=== PATIENT | female | born 1995 | race Two or more races ===

== ENCOUNTER 2016-09-04 15:31 | Emergency (ER) | payer OTHER ==
[~2016-09-04] VITALS: Ht 154.9 cm; Wt 59.0 kg
[2016-09-04] MEDS ORDERED: prenatal vitamin PO (15:52)
[2016-09-04 18:51] LABS: BASO % 0.4 % (0.0-1.0); EOS # 0.5 K/mm3 (0.0-0.50); EOS % 7.1 % (0.0-3.0); LARGE UNSTAINED CELL # 0.2 K/mm3 (0.0-0.4); LARGE UNSTAINED CELL % 3.5 % (0.0-4.0); LYMPH % 31.3 % (24.0-44.0); MEAN CORPUSCULAR HEMOGLOBIN 25.2 pg (27.0-33.0); MEAN CORPUSCULAR HGB CONC 31.2 g/dl (32.0-36.5); MEAN CORPUSCULAR VOLUME 80.8 fl (80.0-96.0); MONO # 0.6 K/mm3 (0.0-0.8); MONO % 9.1 % (0.0-5.0); NEUTROPHILS # 3.2 K/mm3 (1.8-7.7); NEUTROPHILS % 48.5 % (36.0-66.0); PLATELET COUNT, AUTOMATED 258 k/mm3 (150-450); RED CELL DISTRIBUTION WIDTH 16.7 % (11.5-14.5); WHITE BLOOD COUNT 6.5 K/mm3 (4.0-10.0)
[2016-09-04 19:16] LABS: ANION GAP 7 MEQ/L (8-16); BLOOD UREA NITROGEN 8 MG/DL (7-18); CALCIUM LEVEL 8.7 MG/DL (8.5-10.1); CARBON DIOXIDE LEVEL 24 MEQ/L (21-32); CHLORIDE LEVEL 106 MEQ/L (98-107); CREATININE FOR GFR 0.45 MG/DL (0.55-1.02); GLUCOSE, FASTING 74 MG/DL (70-105); HCG, SERUM QUANTITATIVE 58465 MIU/ML; POTASSIUM SERUM 3.8 MEQ/L (3.5-5.1); SODIUM LEVEL 137 MEQ/L (136-145)
--- NOTE | 2016-09-04 19:34 | REP ---
FIRST TRIMESTER ULTRASOUND: REASON: Vaginal bleeding. COMPARISON: None. Transvesical imaging was obtained. Multiple sonographic images of the uterus show an anechoic structure within the endometrial cavity with increased echo surrounding it consistent with a decidual reaction. Within the gestational sac there is a small amount of echogenic material consistent with the pole. The main crown-rump length measurement of which is consistent with 6 week 5 day gestational age. Based on that the estimated date of delivery is 04/25/2017. Doppler interrogation of the pole shows a heart rate of 132 beats per minute. Evaluation of the material adnexal spaces show no abnormalities. There was no evidence of a chorionic or subchorionic abnormality. IMPRESSION: Early OB ultrasound as described above. Signed by Clint Peres DO 09/04/2016 07:49 P
[2016-09-04 20:02] VITALS: BP 122/69
== END 2016-09-04 20:23 | disposition home or self-care (01) ==
LOC: M ED 19:09
DX: O20.8 Other hemorrhage in early pregnancy (principal); Z3A.01 Less than 8 weeks gestation of pregnancy

== ENCOUNTER 2017-04-11 14:00 | Outpatient (CLI) | payer OTHER ==
[~2017-04-11] VITALS: Ht 157.5 cm; Wt 73.0 kg
[~2017-04-11 14:00] MED LIST: prenatal vitamin PO
== END 2017-04-11 16:42 | disposition home or self-care (01) ==
LOC: M LDO 14:00
PROVIDERS: ATTEND Obstetrics & Gynecology
DX: O36.8130 Decreased fetal movements, third trimester, not applicable or unspecified (principal); Z3A.37 37 weeks gestation of pregnancy; N89.8 Other specified noninflammatory disorders of vagina; O26.893 Other specified pregnancy related conditions, third trimester

== ENCOUNTER 2017-04-23 19:07 | Outpatient (CLI) | payer OTHER | END 2017-04-23 19:55 | disposition home or self-care (01) | LOC: M LDO 19:07 | PROVIDERS: ATTEND Obstetrics & Gynecology | DX: O47.1 False labor at or after 37 completed weeks of gestation (principal); Z3A.39 39 weeks gestation of pregnancy ==

== ENCOUNTER 2017-04-23 21:35 | Inpatient (IN) | payer OTHER ==
[~2017-04-23] VITALS: Ht 157.5 cm; Wt 73.3 kg
[2017-04-23 21:50] VITALS: BP 133/83
[2017-04-23 22:49] VITALS: BP 127/70
[2017-04-24] VITALS (26 sets, daily range): BP systolic 96–169; BP diastolic 55–86
[2017-04-24] MEDS ORDERED: LACTATED RINGER'S 1000 ML IV STA (04:19)
[2017-04-24 05:02] LABS: MEAN CORPUSCULAR HEMOGLOBIN 24.3 pg (27.0-33.0); MEAN CORPUSCULAR HGB CONC 32.1 g/dl (32.0-36.5); MEAN CORPUSCULAR VOLUME 75.7 fl (80.0-96.0); PLATELET COUNT, AUTOMATED 214 10^3/uL (150-450); RED CELL DISTRIBUTION WIDTH 19.5 % (11.5-14.5); WHITE BLOOD COUNT 13.3 10^3/uL (4.0-10.0)
[2017-04-24] MEDS ORDERED: FENTANYL 2MCG/ML ROPIVACAINE 0.2% IN 0.9% NACL 200ML IVBAG As Ordered ONE (05:04)
[2017-04-24] MEDS ORDERED: diphenhydrAMINE INJ 50MG/ML VIAL (J1200) IV PRN (07:00)
[2017-04-24] MEDS ORDERED: NALOXONE INJ 0.4 MG/1 ML VIAL (J2310) IV PRN (07:00)
[2017-04-24] MEDS ORDERED: EPIDURAL/PCA KEYS XX PRN (07:00)
[2017-04-24] MEDS ORDERED: REFRIGERATOR IV KEYS XX PRN (07:00)
[2017-04-24] MEDS ORDERED: ONDANSETRON 4MG/2ML VIAL (J2405) IV PRN ×2 (07:00→09:45)
[2017-04-24] MEDS ORDERED: LACTATED RINGER'S 1000 ML IV PRN (07:00)
[2017-04-24] MEDS ORDERED: FENTANYL/ROPIVACAINE/NACL BAG 200 ML EPIDURAL SCH (07:00)
[2017-04-24] MEDS ORDERED: EPIDURAL COMMENT XX SCH (07:00)
[2017-04-24] MEDS ORDERED: ePHEDrine SULFATE 25 MG/5 ML(5MG/ML) SYRINGE IV PRN (07:00)
[2017-04-24] MEDS ORDERED: OXYTOCIN 30 UNITS IN 0.9% NaCl 500ML IV BAG (J2590) As Ordered ONE (07:43)
[2017-04-24] MEDS: PRENATAL VITAMINS CHEWABLE TABLET PO SCH (09:00)
[2017-04-24] MEDS ORDERED: OXYTOCIN DRIP 30 UNITS in APPROPRIATE DILUENT 1 EA IV SCH (09:41)
[2017-04-24] MEDS ORDERED: ACETAMINOPHEN 500 MG TAB PO PRN (09:45)
[2017-04-24] MEDS ORDERED: ANUSOL HC CREAM 30GM TOP PRN (09:45)
[2017-04-24] MEDS ORDERED: DIBUCAINE 1% OINTMENT 30GM TOP PRN (09:45)
[2017-04-24] MEDS ORDERED: DOCUSATE SODIUM 100 MG CAP PO PRN (09:45)
[2017-04-24] MEDS: IBUPROFEN 600 MG TAB PO PRN (15:44)
[2017-04-25 06:00] VITALS: BP 136/60
--- NOTE | 2017-04-25 07:20 | IPNPDOC ---
Progress Note Date of Service The patient was seen on 04/25/17 at 07:18. Progress Note PPD#1 s/p S: Pt doing well. Pain well controlled, lochia minimal, voiding spontaneously without problem, tolerating a regular diet, ambulating without difficulty. No f /c/n/v/OLGUIN. Plans on breast feeding. O: Normotensive, nml HR, afebrile General: WDWN, resting comfortably in bed Abd: soft, appropriately tender, and FF at U-2/fundus nontender Ext: no c/c/e A/P: Shy is a 22yo [id number] s/p after presenting in labor at 39w4d, doing well PPD#1. Hemodynamically stable, afebrile, good pain control. -routine care -tylenol/motrin for pain -continue to monitor closely -anticipate discharge tomorrow Dr. Tomkea Alaniz ([facility]), VS, I&O, 24H, Fishbone Vital Signs/I&O Vital Signs Date Time Temp Pulse Resp B/P (MAP) Pulse Ox O2 Delivery O2 Flow Rate FiO2 04/25/17 06:00 98.4 112 18 136/60 (85) 04/24/17 07:28 Room Air TOMEKA ALANIZ MD Apr 25, 2017 07:20
[2017-04-25 08:30] VITALS: BP 117/73
[2017-04-25] MEDS ORDERED: INFLUENZA QUADRIVALENT PF VACCINE 0.5ML SYRINGE (90686) IM ONE (09:00)
[2017-04-25] MEDS: PRENATAL VITAMINS CHEWABLE TABLET PO SCH (09:58)
[2017-04-25] MEDS: IBUPROFEN 600 MG TAB PO PRN (09:59)
--- NOTE | 2017-04-25 15:37 | IPN ---
DATE: 04/25/2017 This patient requested circumcision of her male . After discussing risks and benefits circumcision, the medical and nonmedical indications, the penile block aftercare and the complications, answered all questions, patient signed and witnessed the consent form. We await clearance by the dust box worker.
[2017-04-25 18:16] VITALS: BP 112/65
[2017-04-26 01:50] VITALS: BP 134/76
[2017-04-26] MEDS ORDERED: ACETAMINOPHEN 500 MG TAB PO STA (02:01)
[2017-04-26 02:27] LABS: BASO % 0.2 % (0.0-1.0); EOS # 0.2 10^3/uL (0.0-0.50); EOS % 1.6 % (0.0-3.0); IMMATURE GRANULOCYTE % 0.5 % (0-0); LYMPH % 11.2 % (24.0-44.0); MEAN CORPUSCULAR HEMOGLOBIN 24.2 pg (27.0-33.0); MEAN CORPUSCULAR HGB CONC 31.3 g/dl (32.0-36.5); MEAN CORPUSCULAR VOLUME 77.1 fl (80.0-96.0); MONO # 0.8 10^3/uL (0.0-0.8); MONO % 8.9 % (0.0-5.0); NEUTROPHILS # 7.1 10^3/uL (1.8-7.7); NEUTROPHILS % 77.6 % (36.0-66.0); PLATELET COUNT, AUTOMATED 180 10^3/uL (150-450); RED CELL DISTRIBUTION WIDTH 19.6 % (11.5-14.5); WHITE BLOOD COUNT 9.2 10^3/uL (4.0-10.0)
[2017-04-26 03:05] VITALS: BP 107/57
[2017-04-26 05:54] VITALS: BP 116/72
[2017-04-26] MEDS ORDERED: TYLE325T5 PO (07:56)
[2017-04-26] MEDS ORDERED: DIBU10OI TOP (07:56)
[2017-04-26] MEDS ORDERED: COLA100C5 PO (07:56)
[2017-04-26] MEDS ORDERED: MOTR200T44 PO (07:56)
[2017-04-26] MEDS ORDERED: PRENTAB55 PO (07:56)
[2017-04-26] MEDS ORDERED: ANUS2.5C2 TOP (07:56)
[2017-04-26] MEDS: PRENATAL VITAMINS CHEWABLE TABLET PO SCH (08:45)
--- NOTE | 2017-04-26 10:14 | DSES ---
DATE OF ADMISSION: 04/24/2017 DATE OF DISCHARGE: DISCHARGE NOTE: This lady is a 22-year-old, 1, now para 1, was admitted with contractions, had a spontaneous vaginal delivery of male , 7 pounds 8 ounces (3410 grams) of 8 and 9 at one and five minutes respectively. Her admitting hemoglobin was 11.0, hematocrit 34.3 and platelets were 214. Her vital signs this morning, her blood pressure 116/72, respirations 18, pulse 109, temperature is 98.1. She had an elevated temperature at 01:50 a.m. after having been given her flu shot despite the policy and written orders of giving a flu shot at discharge. At that time, she had a blood pressure 134/76, respirations 20, pulse 129. She had a septic workup, which was going to be negative and she felt much better after having the Tylenol and temperature coming down. She had bilateral labial lacerations, one of which was repaired on the right side, the left side did not require repair. On discharge, we discussed phlebitis, cystitis, mastitis, endometritis and cellulitis, diet, exercise, pain management, perineal, breast and wound care. She was given her meds at discharge and the rest of the examination is unremarkable. Her admitting hemoglobin was 11.0, hematocrit 34.3, platelets 214. Discharge hemoglobin 9.3, hematocrit 29.7, platelets were 180. She is normocephalic, atraumatic. Neck full range of motion. Pupils equal and reactive to light. Chest is clear bilaterally to bases. No wheezes or rhonchi. Neck is normal. Thyroid midline. Mucosa membranes are clear and dry, and uvula is midline with no evidence of exudate. Distal pulses are symmetric. No evidence of deep venous thrombosis (DVT), pulmonary embolism (PE) or superficial phlebitis. Uterus is 2 below. Lochia is moderate. Nontender uterus. Nonodorous lochia. No rashes, lesions or pruritus. No arthralgia or myalgia. No complaints of cough, wheezes, shortness of breath or dyspnea on exertion. No chest pain. No bleeding. Neuro complete. No incontinency, urgency or frequency. No nausea, vomiting, diarrhea or constipation. No diabetic issues or CONSUMER RELATIONS SPECIALIST issues. Past medical and surgical, family history noncontributory. She does not smoke, drink, abuse drugs. She is . There is no domestic violence. In summary, we have a term gestation, delivered a live male , discharged to followup in the office in 6 weeks' time.
== END 2017-04-26 12:37 | disposition home or self-care (01) | DRG 775 ==
LOC: M LDO 21:35 → M LDI 04-24 04:23 → M OBS 04-24 12:16
PROVIDERS: ADMIT Obstetrics & Gynecology; ATTEND Obstetrics & Gynecology
PROC: 10E0XZZ Delivery of Products of Conception, External Approach (ICD-10-PCS; principal; 2017-04-24)
PROC: 0HQ9XZZ Repair Perineum Skin, External Approach (ICD-10-PCS; 2017-04-24)
DX: O70.0 First degree perineal laceration during delivery (principal); O71.82 Other specified trauma to perineum and vulva; Z3A.39 39 weeks gestation of pregnancy; Z37.0 Single live birth

== ENCOUNTER → 2017-08-18 | Outpatient (REF) | payer OTHER | LOC: M SFHCLERA 14:00 | DX: R31.9 Hematuria, unspecified (principal) | CPT/HCPCS: 87086 ==

== ENCOUNTER → 2018-03-25 | Outpatient (CLI) | payer OTHER | LOC: M RAD 07:15 | DX: Z36.89 Encounter for other specified antenatal screening (principal); O35.8XX0 Maternal care for other (suspected) fetal abnormality and damage, not applicable or unspecified; O32.1XX0 Maternal care for breech presentation, not applicable or unspecified; Z3A.26 26 weeks gestation of pregnancy | CPT/HCPCS: 76811 ==

== ENCOUNTER → 2018-04-22 | Outpatient (CLI) | payer OTHER, MEDICAID | LOC: M SMT 08:36 | DX: Z36.89 Encounter for other specified antenatal screening (principal); Z3A.30 30 weeks gestation of pregnancy | CPT/HCPCS: 76816 ==

== ENCOUNTER → 2018-06-11 | Outpatient (CLI) | payer OTHER ==
[2018-06-11 13:35] LABS: BASO % 0.3 % (0.0-1.0); EOS # 0.2 10^3/uL (0.0-0.50); EOS % 2.5 % (0.0-3.0); HEMATOCRIT 33.8 % (36.0-47.0); HEMOGLOBIN 10.4 g/dl (12.0-15.5); IMMATURE GRANULOCYTE % 0.7 % (0-3.0); LYMPH # 1.9 10^3/uL (1.5-6.5); LYMPH % 31.9 % (24.0-44.0); MEAN CORPUSCULAR HEMOGLOBIN 24.5 pg (27.0-33.0); MEAN CORPUSCULAR HGB CONC 30.8 g/dl (32.0-36.5); MEAN CORPUSCULAR VOLUME 79.5 fl (80.0-96.0); MONO # 0.8 10^3/uL (0.0-0.8); MONO % 13.3 % (0.0-5.0); NEUTROPHILS % 51.3 % (36.0-66.0); PLATELET COUNT, AUTOMATED 204 10^3/uL (150-450); RED BLOOD COUNT 4.25 10^6/uL (4.00-5.40); RED CELL DISTRIBUTION WIDTH 19.3 % (11.5-14.5); WHITE BLOOD COUNT 5.9 10^3/uL (4.0-10.0)
[2018-06-11 13:41] LABS: DIFF SLIDE NUMBER 140
[2018-06-11 14:06] LABS: HIV 1&2 SCREEN CENTAUR NEGATIVE (NEGATIVE)
[2018-06-11 14:06] LABS: HEPATITIS C VIRUS ABY INDEX 0.1 INDEX (<0.8)
== END ==
LOC: M SMT 08:45
DX: Z36.89 Encounter for other specified antenatal screening (principal)
CPT/HCPCS: 86803

== ENCOUNTER 2018-06-25 21:15 | Inpatient (IN) | payer OTHER, MEDICAID ==
[2018-06-25 23:54] LABS: HEMATOCRIT 34.6 % (36.0-47.0); HEMOGLOBIN 10.9 g/dl (12.0-15.5); MEAN CORPUSCULAR HEMOGLOBIN 24.8 pg (27.0-33.0); MEAN CORPUSCULAR HGB CONC 31.5 g/dl (32.0-36.5); MEAN CORPUSCULAR VOLUME 78.6 fl (80.0-96.0); PLATELET COUNT, AUTOMATED 214 10^3/uL (150-450); RED CELL DISTRIBUTION WIDTH 20.3 % (11.5-14.5); WHITE BLOOD COUNT 9.4 10^3/uL (4.0-10.0)
[2018-06-26] MEDS: OXYTOCIN DRIP 30 UNITS in APPROPRIATE DILUENT 1 EA IV ×2 (00:07→03:52)
[2018-06-26] MEDS: LACTATED RINGER'S 1000 ML IV (00:07)
[2018-06-26] MEDS ORDERED: FENTANYL 2MCG/ML ROPIVACAINE 0.2% IN 0.9% NACL 100ML IVBAG As Ordered (00:47)
[2018-06-26] MEDS: LR 1,000 ML IV (01:25)
[2018-06-26] MEDS ORDERED: ONDANSETRON 4MG/2ML VIAL (J2405) IV ×2 (04:00→04:30)
[2018-06-26] MEDS ORDERED: METHYLERGONOVINE MALEATE 0.2 MG TAB PO (04:00)
[2018-06-26] MEDS ORDERED: RHOGAM 300 MCG (1500 IU) INJ (J2790) IM (04:00)
[2018-06-26] MEDS ORDERED: REFRIGERATOR IV KEYS XX (04:30)
[2018-06-26] MEDS ORDERED: NALOXONE INJ 0.4 MG/1 ML VIAL (J2310) IV (04:30)
[2018-06-26] MEDS: FENTANYL/ROPIVACAINE/NACL BAG 100 ML EPIDURAL (04:30)
[2018-06-26] MEDS ORDERED: EPIDURAL COMMENT XX (04:30)
[2018-06-26] MEDS ORDERED: ePHEDrine SULFATE 25 MG/5 ML(5MG/ML) SYRINGE IV (04:30)
[2018-06-26] MEDS ORDERED: EPIDURAL/PCA KEYS XX (04:30)
[2018-06-26] MEDS ORDERED: diphenhydrAMINE INJ 50MG/ML VIAL (J1200) IV (04:30)
[2018-06-26] MEDS: PRENATAL VITAMINS CHEWABLE TABLET PO (09:29)
[2018-06-26] MEDS: ACETAMINOPHEN 500 MG TAB PO (15:27)
[2018-06-27] MEDS: IBUPROFEN 800 MG TAB PO (03:39)
[2018-06-27] MEDS: PRENATAL VITAMINS CHEWABLE TABLET PO (07:40)
== END 2018-06-27 12:07 | disposition home or self-care (01) | DRG 560 ==
LOC: M LDO 21:15 → M OBS 06-26 05:40 → M LDI 23:26
PROVIDERS: Advanced Practice Midwife
PROC: 10E0XZZ Delivery of Products of Conception, External Approach (ICD-10-PCS; principal; 2018-06-25)
DX: O80 Encounter for full-term uncomplicated delivery (principal); Z37.0 Single live birth; Z3A.39 39 weeks gestation of pregnancy

== ENCOUNTER → 2018-08-06 | Outpatient (REF) | payer OTHER ==
[~2018-08-06] MED LIST changes: +ANUS2.5C2 TOP; +COLA100C5 PO; +DIBU10OI TOP; +MOTR200T44 PO; +PRENTAB55 PO; +TYLE325T5 PO
[2018-08-06 16:52] LABS: ALBUMIN 3.7 GM/DL (3.2-5.2); ALT/SGPT 24 U/L (12-78); BILIRUBIN,TOTAL 0.2 MG/DL (0.2-1.0); BLOOD UREA NITROGEN 11 MG/DL (7-18); CALCIUM LEVEL 9.3 MG/DL (8.5-10.1); CARBON DIOXIDE LEVEL 29 MEQ/L (21-32); CHLORIDE LEVEL 105 MEQ/L (98-107); CREATININE FOR GFR 0.56 MG/DL (0.55-1.30); FREE T4 0.84 NG/DL (0.76-1.46); GLOMERULAR FILTRATION RATE > 60.0 (>60); GLUCOSE, FASTING 73 MG/DL (70-100); POTASSIUM SERUM 4.5 MEQ/L (3.5-5.1); SODIUM LEVEL 140 MEQ/L (136-145); TOTAL PROTEIN 6.9 GM/DL (6.4-8.2)
[2018-08-06 16:53] LABS: TOTAL 25(OH) VITAMIN D 34.5 NG/ML (30.0-100.0)
[2018-08-06 17:03] LABS: HEMOGLOBIN A1c 5.4 %
== END ==
LOC: M SFHCPLAZ 14:02
PROVIDERS: ATTEND Nurse Practitioner Family
DX: Z83.3 Family history of diabetes mellitus (principal); L20.9 Atopic dermatitis, unspecified

== ENCOUNTER 2019-02-04 16:49 | Emergency (ER) | payer OTHER ==
[~2019-02-04] VITALS: Ht 154.9 cm; Wt 67.7 kg
[2019-02-04 17:32] LABS: BASO % 0.4 % (0.0-1.0); EOS # 0.5 10^3/uL (0.0-0.50); EOS % 6.5 % (0.0-3.0); HEMATOCRIT 41.2 % (36.0-47.0); HEMOGLOBIN 13.1 g/dl (12.0-15.5); LYMPH # 2.4 10^3/uL (1.5-6.5); LYMPH % 35.3 % (24.0-44.0); MEAN CORPUSCULAR HEMOGLOBIN 27.2 pg (27.0-33.0); MEAN CORPUSCULAR HGB CONC 31.8 g/dl (32.0-36.5); MEAN CORPUSCULAR VOLUME 85.7 fl (80.0-96.0); MONO # 0.8 10^3/uL (0.0-0.8); MONO % 11.9 % (0.0-5.0); NEUTROPHILS # 3.2 10^3/uL (1.8-7.7); NEUTROPHILS % 45.6 % (36.0-66.0); PLATELET COUNT, AUTOMATED 312 10^3/uL (150-450); RED BLOOD COUNT 4.81 10^6/uL (4.00-5.40); WHITE BLOOD COUNT 6.9 10^3/uL (4.0-10.0)
[2019-02-04 17:53] LABS: BLOOD UREA NITROGEN 14 MG/DL (7-18); CALCIUM LEVEL 9.6 MG/DL (8.5-10.1); CARBON DIOXIDE LEVEL 26 MEQ/L (21-32); CHLORIDE LEVEL 105 MEQ/L (98-107); GLOMERULAR FILTRATION RATE > 60.0 (>60); GLUCOSE, FASTING 93 MG/DL (70-100); SODIUM LEVEL 139 MEQ/L (136-145)
[2019-02-04 19:03] VITALS: BP 130/76
--- NOTE | 2019-02-04 19:22 | REPVR ---
EXAM: US First Trimester, Transabdominal and US Duplex Artery or Vein, Ovaries, Limited EXAM DATE/TIME: 02/04/2019 6:35 PM CLINICAL HISTORY: 23 years old, female; complicated by abdominal or pelvic pain; Right lower quadrant; First trimester; Gestational age or lmp: 6; ; Additional info: Cramping TECHNIQUE: Imaging protocol: Real-time transabdominal obstetrical ultrasound of the maternal pelvis and a first trimester , less than 14 weeks 0 days, with image documentation. Real-time duplex ultrasound scan of the arterial or venous flow of the ovaries with B-mode, color Doppler flow and spectral waveform analysis, limited Duplex. COMPARISON: US OBS FOLL UP OR REPEAT EACH GES 04/22/2018 8:51 AM FINDINGS: GESTATION: Gestation: There is a single intrauterine gestational sac demonstrating decidual reaction. Heart rate: The heart rate is 113 bpm. Placenta: Unremarkable. No subchorionic bleed. Amniotic fluid: Amniotic and chorionic fluid are normal for gestational age. BIOMETRY: Estimated gestational age: The pole crown-rump length is 0.80 cm corresponding to a gestational age of 6 weeks 5 days. Estimated due date: The RISHABH is 09/25/2019. MATERNAL: Uterus: Unremarkable. Right adnexa: The right ovary measures 2.4 x 3.6 x 2.1 cm. There is a corpus luteal cyst measuring 2.3 x 2.0 cm. Normal color and spectral blood flow. Left adnexa: The left ovary measures 2.2 x 3.4 x 2.0 cm. Normal color and spectral blood flow. Intraperitoneal: No intraperitoneal free fluid. IMPRESSION: Single live intrauterine gestation, as above. Electronically signed by: Fanny Nur On 02/04/2019 19:21:43 PM
== END 2019-02-04 19:57 | disposition home or self-care (01) ==
LOC: M ED 16:49
DX: O26.891 Other specified pregnancy related conditions, first trimester (principal); R10.2 Pelvic and perineal pain; N83.11 Corpus luteum cyst of right ovary; Z3A.01 Less than 8 weeks gestation of pregnancy

== ENCOUNTER → 2019-04-07 | Outpatient (CLI) | payer OTHER ==
[2019-04-07 17:10] LABS: BASO % 0.3 % (0.0-1.0); EOS # 0.3 10^3/uL (0.0-0.5); EOS % 5.1 % (0.0-3.0); HEMATOCRIT 37.3 % (36.0-47.0); HEMOGLOBIN 12.1 g/dl (12.0-15.5); LYMPH # 1.5 10^3/uL (1.5-5.0); LYMPH % 26.9 % (24.0-44.0); MEAN CORPUSCULAR HEMOGLOBIN 27.6 pg (27.0-33.0); MEAN CORPUSCULAR HGB CONC 32.4 g/dl (32.0-36.5); MEAN CORPUSCULAR VOLUME 85.2 fl (80.0-96.0); MONO # 0.8 10^3/uL (0.0-0.8); MONO % 13.3 % (0.0-5.0); NEUTROPHILS # 3.1 10^3/uL (1.5-8.5); NEUTROPHILS % 54.1 % (36.0-66.0); PLATELET COUNT, AUTOMATED 219 10^3/uL (150-450); RED BLOOD COUNT 4.38 10^6/uL (4.00-5.40); WHITE BLOOD COUNT 5.7 10^3/uL (4.0-10.0)
[2019-04-07 17:19] LABS: FREE THYROXINE INDEX 3.3 % (1.3-4.8); T UPTAKE 26 % (30-39); THYROXINE (T4) 12.7 UG/DL (4.5-12.0)
[2019-04-07 18:38] LABS: CHLAMYDIA DNA AMPLIFICATION NEGATIVE (NEGATIVE); GC DNA AMPLIFICATION NEGATIVE (NEGATIVE)
[2019-04-08 10:29] LABS: RUBELLA IgG QUALITATIVE IMMUNE (IMMUNE)
[2019-04-08 10:57] LABS: HEPATITIS C VIRUS ABY INDEX 0.2 INDEX (<0.8)
[2019-04-08 10:58] LABS: HIV 1&2 SCREEN CENTAUR NEGATIVE (NEGATIVE)
== END ==
LOC: M SMT 12:46
PROVIDERS: ATTEND Advanced Practice Midwife
DX: Z34.81 Encounter for supervision of other normal pregnancy, first trimester (principal); Z3A.11 11 weeks gestation of pregnancy

== ENCOUNTER → 2019-05-02 | Outpatient (CLI) | payer OTHER ==
--- NOTE | 2019-05-02 10:55 | REP ---
Clinical: Anatomical evaluation. Comparison: None . Findings: Examination demonstrates a single live intrauterine in cephalic presentation. motion is identified by technologist. Placenta is noted anterior and grade zero without evidence for placenta previa or abruption. Amniotic fluid volume is normal. Cervix measures 4.1 cm in length and appears closed. No evidence for nuchal cord. Gestational age by LMP 18 weeks 3 days with RISHABH 09/30/2019 . Gestational age by current measurements 18 weeks for the with RISHABH is 09/29/2019 . FHR equals 146 beats per minute. BPD 3.9 cm 17 weeks 6 days HC 15.3 cm 18 weeks 2 days AC 13.3 cm 18 week 6 days FL 2.9 cm 19 weeks 0 days HL 2.6 cm 18 weeks 2 days HC/AC ratio 1.15 Estimated weight 257 grams ( 61st percentile). Anatomical assessment demonstrates normal structures including cranium, choroid plexus, cavum, cerebellum/posterior fossa, facial features, lungs, four-chamber heart/ventricular outflow tracts, diaphragm, stomach, cord insertion/three-vessel cord, kidneys/bladder, spine, and extremities. Impression: Single live intrauterine in cephalic presentation demonstrating appropriate interval growth. Anatomical assessment is complete and normal. No gross abnormalities are identified. Electronically Signed by Yehuda Velázquez MD 05/02/2019 10:47 A
== END ==
LOC: M RAD 09:30
PROVIDERS: ATTEND Specialist
DX: Z34.82 Encounter for supervision of other normal pregnancy, second trimester (principal); Z3A.18 18 weeks gestation of pregnancy

== ENCOUNTER → 2019-08-30 | Outpatient (REF) | payer OTHER, MEDICAID | LOC: M SFHCWAGY 17:04 | PROVIDERS: ATTEND Advanced Practice Midwife | DX: Z36.85 Encounter for antenatal screening for Streptococcus B (principal) ==

== ENCOUNTER 2019-09-22 23:51 | Inpatient (IN) | payer MEDICAID, OTHER ==
[~2019-09-22] VITALS: Ht 154.9 cm; Wt 72.4 kg
[2019-09-23] VITALS (24 sets, daily range): BP systolic 114–147; BP diastolic 59–89
[2019-09-23] MEDS ORDERED: LACTATED RINGER'S 1000 ML IV STA (00:20)
[2019-09-23] MEDS ORDERED: LR 1,000 ML IV SCH (00:20)
[2019-09-23] MEDS ORDERED: OXYTOCIN 30 UNITS IN 0.9% NaCl 500ML IV BAG (J2590) As Ordered ONE (00:22)
[2019-09-23] MEDS ORDERED: FENTANYL 2MCG/ML ROPIVACAINE 0.2% IN 0.9% NACL 100ML IVBAG As Ordered ONE (00:45)
[2019-09-23 00:49] LABS: HEMATOCRIT 34.7 % (36.0-47.0); MEAN CORPUSCULAR HEMOGLOBIN 24.4 pg (27.0-33.0); MEAN CORPUSCULAR HGB CONC 31.7 g/dl (32.0-36.5); MEAN CORPUSCULAR VOLUME 77.1 fl (80.0-96.0); PLATELET COUNT, AUTOMATED 200 10^3/uL (150-450); WHITE BLOOD COUNT 6.6 10^3/uL (4.0-10.0)
[2019-09-23] MEDS ORDERED: diphenhydrAMINE INJ 50MG/ML VIAL (J1200) IV PRN (01:05)
[2019-09-23] MEDS ORDERED: EPIDURAL COMMENT XX SCH (01:05)
[2019-09-23] MEDS ORDERED: ePHEDrine SULFATE 25 MG/5 ML(5MG/ML) SYRINGE IV PRN (01:05)
[2019-09-23] MEDS ORDERED: EPIDURAL/PCA KEYS XX PRN (01:05)
[2019-09-23] MEDS ORDERED: ONDANSETRON 4MG/2ML VIAL (J2405) IV PRN ×2 (01:05→03:00)
[2019-09-23] MEDS ORDERED: NALOXONE INJ 0.4 MG/1 ML VIAL (J2310) IV PRN (01:05)
[2019-09-23] MEDS ORDERED: FENTANYL/ROPIVACAINE/NACL BAG 100 ML EPIDURAL SCH (01:05)
[2019-09-23] MEDS ORDERED: REFRIGERATOR IV KEYS XX PRN (01:05)
[2019-09-23] MEDS ORDERED: IBUPROFEN 600 MG TAB PO PRN (03:00)
[2019-09-23] MEDS ORDERED: DOCUSATE SODIUM 100 MG CAP PO PRN (03:00)
[2019-09-23] MEDS ORDERED: DIBUCAINE 1% OINTMENT 30GM TOP PRN (03:00)
[2019-09-23] MEDS ORDERED: ACETAMINOPHEN TAB 650MG DOSE (2X325MG) PO PRN (03:00)
[2019-09-23] MEDS ORDERED: RHOGAM 300 MCG (1500 IU) INJ (J2790) IM SCH (03:00)
[2019-09-23] MEDS ORDERED: ACETAMINOPHEN 500 MG TAB PO PRN (03:00)
[2019-09-23] MEDS ORDERED: METHYLERGONOVINE MALEATE 0.2 MG TAB PO PRN (03:00)
[2019-09-23] MEDS ORDERED: OXYTOCIN DRIP 30 UNITS in IV 1 EA IV ONE (03:00)
[2019-09-23] MEDS ORDERED: MEASLES,MUMPS,RUBELLA VACCINE INJ (MMR-II) (90707) SC SCH (03:00)
[2019-09-23] MEDS ORDERED: IBUPROFEN 800 MG TAB PO PRN (03:00)
--- NOTE | 2019-09-23 06:16 | HPE ---
DATE OF ADMISSION: 09/23/2019 She is a 24-year-old, (G) 3, para (P) 2 female at 39 and 5/7 weeks gestation by 6 week ultrasound and expected date of confinement (EDC) of 09/25/2019 who presents with regular contractions every 2-3 minutes for the last several hours. The contractions increased in intensity. There is good movement. COURSE: The patient initiated care at 11 weeks gestation on 03/09/2019. Her first trimester blood pressure was 122/74, weight 141 pounds. She had no complications. OBSTETRICAL HISTORY: 1. 2016, 39 week vaginal delivery of a 7 pound 7 ounce male infant. 2. June 2018, 39 week vaginal delivery of a 7 pound 14 ounce female . MEDICAL HISTORY: Psoriasis. SURGICAL HISTORY: None. ALLERGIES: None. SOCIAL HISTORY: The patient is . She lives in [place]. She denies cigarettes, alcohol or drug use. FAMILY HISTORY: Noncontributory. PHYSICAL EXAMINATION: Blood pressure 134/74. Pulse 84. She appears uncomfortable. Head and Neck Exam: Normal. Lungs: Clear. Heart: Regular rate and rhythm. Abdomen: Gravid. heart tones Category 1. Sterile Vaginal Exam: 7 cm, 70% effaced, -1. Extremities: Nontender. Contractions every 2-3 minutes. LABS: Blood type O positive. Rubella immune. RPR nonreactive. GBS negative. ASSESSMENT: 24-year-old, G3, P2 female at 39 and 5/7 weeks gestation who presents in active labor. PLAN: The patient is admitted on 09/23/2019.
[2019-09-23] MEDS: PRENATAL VITAMINS CHEWABLE TABLET PO SCH (09:18)
--- NOTE | 2019-09-23 12:28 | DN ---
DATE: 09/23/2019 PREDELIVERY DIAGNOSIS: Term labor. POSTDELIVERY DIAGNOSIS: Delivered. PROCEDURE: Spontaneous vaginal delivery. PHOTO CHECKER AND ASSEMBLER: Dr. Bautista Ba MD. LAST CODE STRIPER: Dr. Jose Bobo DO. ANESTHESIA: Epidural. ESTIMATED BLOOD LOSS: 300 mL. FINDINGS: 9-[id number]-97-ounce female . scores 8 and 9. DELIVERY SUMMARY: After a short second stage, patient has spontaneous delivery of a 0-hnqje-62-ounce female , Apgars 8 and 9 under epidural anesthesia. There is no nuchal cord. The shoulders delivered with ease. The was handed to the mother. The cord was doubly clamped and cut. The placenta delivered spontaneously and appeared to be intact. Patient received IV Pitocin for delivery of the placenta. There were no vaginal lacerations present. Sponge counts were correct.
[2019-09-24 06:16] VITALS: BP 143/79
[2019-09-24] MEDS: PRENATAL VITAMINS CHEWABLE TABLET PO SCH (08:03)
[2019-09-24] MEDS ORDERED: IBUP80TA PO (08:24)
[2019-09-24] MEDS ORDERED: ACET-683 PO (08:24)
== END 2019-09-24 12:48 | disposition home or self-care (01) | DRG 560 ==
LOC: M LDO 23:51 → M LDI 09-23 00:14 → M OBS 09-23 04:16
PROVIDERS: ADMIT Specialist; ATTEND Specialist
PROC: 10E0XZZ Delivery of Products of Conception, External Approach (ICD-10-PCS; principal; 2019-09-23)
DX: O80 Encounter for full-term uncomplicated delivery (principal); Z3A.39 39 weeks gestation of pregnancy; Z37.0 Single live birth

== ENCOUNTER → 2019-12-22 | Outpatient (REF) | payer OTHER ==
[~2019-12-22] MED LIST changes: +ACET-683 PO; +IBUP80TA PO
== END ==
LOC: M SFHCWAGY 17:11
PROVIDERS: ATTEND Specialist
DX: Z12.4 Encounter for screening for malignant neoplasm of cervix (principal)

== ENCOUNTER 2021-01-15 08:48 | Emergency (ER) | payer OTHER, MEDICAID ==
[~2021-01-15] VITALS: Ht 154.9 cm; Wt 68.3 kg
[~2021-01-15 08:48] MED LIST changes: -DIBU10OI TOP; +DIBU28OI2 TOP
[2021-01-15 10:14] LABS: BASO % 0.8 % (0.0-1.0); EOS # 0.3 10^3/uL (0.0-0.5); EOS % 7.6 % (0.0-3.0); HEMATOCRIT 39.1 % (36.0-47.0); HEMOGLOBIN 12.2 g/dl (12.0-15.5); LYMPH # 1.4 10^3/uL (1.5-5.0); LYMPH % 37.6 % (24.0-44.0); MEAN CORPUSCULAR HGB CONC 31.2 g/dl (32.0-36.5); MEAN CORPUSCULAR VOLUME 83.2 fl (80.0-96.0); MONO # 0.4 10^3/uL (0.0-0.8); MONO % 11.5 % (2.0-8.0); NEUTROPHILS # 1.6 10^3/uL (1.5-8.5); PLATELET COUNT, AUTOMATED 253 10^3/uL (150-450); WHITE BLOOD COUNT 3.8 10^3/uL (4.0-10.0)
[2021-01-15 10:30] LABS: APPEARANCE, URINE HAZY (CLEAR); BACTERIA, URINE AUTO NEGATIVE (NEGATIVE); BILIRUBIN, URINE AUTO NEGATIVE (NEGATIVE); BLOOD, URINE BLOOD 3+ (NEGATIVE); COLOR, URINE YELLOW (YELLOW); GLUCOSE, URINE (UA) AUTO NEGATIVE (NEGATIVE); KETONE, URINE AUTO NEGATIVE (NEGATIVE); LEUKOCYTE ESTERASE, URINE AUTO NEGATIVE (NEGATIVE); MUCUS, URINE SMALL (NEGATIVE); NITRITE, URINE AUTO NEGATIVE (NEGATIVE); PROTEIN, URINE AUTO NEGATIVE (NEGATIVE); RBC, URINE AUTO 161 /HPF (0-3); SPECIFIC GRAVITY URINE AUTO 1.014 (1.002-1.035); SQUAMOUS EPITHELIAL CELL UR AU 1 /HPF (0-6); UROBILINOGEN, URINE AUTO 0.2 mg/dL (0.0-2.0); WBC, URINE AUTO 0 /HPF (0-3)
[2021-01-15 10:45] LABS: ALBUMIN 3.7 GM/DL (3.2-5.2); ALT/SGPT 24 U/L (12-78); BILIRUBIN,DIRECT < 0.1 MG/DL (0.0-0.2); BILIRUBIN,TOTAL 0.3 MG/DL (0.2-1.0); BLOOD UREA NITROGEN 10 MG/DL (7-18); CALCIUM LEVEL 8.9 MG/DL (8.5-10.1); CARBON DIOXIDE LEVEL 22 MEQ/L (21-32); CHLORIDE LEVEL 110 MEQ/L (98-107); CREATININE FOR GFR 0.47 MG/DL (0.55-1.30); GLOMERULAR FILTRATION RATE > 60.0 (>60); GLUCOSE, FASTING 92 MG/DL (70-100); HCG, SERUM QUANTITATIVE 14 MIU/ML; LIPASE 47 U/L (73-393); POTASSIUM SERUM 4.2 MEQ/L (3.5-5.1); SODIUM LEVEL 140 MEQ/L (136-145); TOTAL PROTEIN 7.2 GM/DL (6.4-8.2)
--- NOTE | 2021-01-15 11:58 | REP ---
INDICATION: vag bleed eval for IUP. COMPARISON: None. TECHNIQUE: Transvesical and transvaginal scanning FINDINGS: The uterus measures 7.9 x 4.7 x 5.5 cm. The parenchymal echo pattern is within normal limits. The endometrial echo complex measures 1 cm in thickness and is within normal limits. The right ovary measures 2.8 x 2.5 x 2.6 cm and is within normal limits with an RI 0.43. A 2 cm sized dominant follicles noted incidentally. Left ovary measures 2.2 x 1.6 x 1.6 cm and is within normal limits with an RI 0.45. IMPRESSION: Within normal limits. There is no evidence of an intrauterine or extra uterine . <Electronically signed by Clint Peres > 01/15/21 [id number]
[2021-01-15 13:15] VITALS: BP 113/71
[2021-01-15 13:53] LABS: GC DNA AMPLIFICATION NEGATIVE (NEGATIVE)
== END 2021-01-15 13:22 | disposition home or self-care (01) ==
LOC: M ED 08:48
DX: O03.9 Complete or unspecified spontaneous abortion without complication (principal)

== ENCOUNTER → 2021-01-17 | Outpatient (CLI) | payer OTHER | LOC: M LAB 11:47 | PROVIDERS: ATTEND Emergency Medicine | DX: O20.0 Threatened abortion (principal); Z3A.00 Weeks of gestation of pregnancy not specified ==

== ENCOUNTER 2021-02-24 12:55 | Emergency (ER) | payer OTHER ==
[~2021-02-24] VITALS: Ht 154.9 cm; Wt 68.2 kg
[2021-02-24 16:04] VITALS: BP 104/71
[2021-02-24] MEDS ORDERED: GI COCKTAIL 50ML BTL(HYOSCYAMINE/MAALOX/LIDOCAINE VISCOUS)(1:3:1) PO ONE (16:25)
[2021-02-24] MEDS ORDERED: PANTOPRAZOLE 40MG TAB (PROTONIX) PO ONE (16:30)
[2021-02-24] MEDS ORDERED: SUCRALFATE 1 GM TAB PO ONE (16:30)
[2021-02-24 17:01] LABS: RSV AMPLIFICATION NEGATIVE (NEGATIVE)
[2021-02-24] MEDS: ALBUTEROL 90 MCG/ACT 8GM HFA INHALER INH SCH ×3 (17:16→18:11)
[2021-02-24 17:35] LABS: BASO % 0.5 % (0.0-1.0); EOS # 0.3 10^3/uL (0.0-0.5); EOS % 4.6 % (0.0-3.0); HEMATOCRIT 39.5 % (36.0-47.0); HEMOGLOBIN 12.8 g/dl (12.0-15.5); LYMPH # 2.2 10^3/uL (1.5-5.0); LYMPH % 39.1 % (24.0-44.0); MEAN CORPUSCULAR HEMOGLOBIN 26.4 pg (27.0-33.0); MEAN CORPUSCULAR HGB CONC 32.4 g/dl (32.0-36.5); MEAN CORPUSCULAR VOLUME 81.4 fl (80.0-96.0); MONO # 0.6 10^3/uL (0.0-0.8); MONO % 10.5 % (2.0-8.0); NEUTROPHILS # 2.5 10^3/uL (1.5-8.5); NEUTROPHILS % 45.1 % (36.0-66.0); PLATELET COUNT, AUTOMATED 314 10^3/uL (150-450); RED BLOOD COUNT 4.85 10^6/uL (4.00-5.40); WHITE BLOOD COUNT 5.6 10^3/uL (4.0-10.0)
[2021-02-24 18:03] LABS: CK-MB VALUE MASS < 1.0 NG/ML (<3.6); CPK CREATINE PHOSPHOKINASE 45 U/L (26-192); MB/CK RELATIVE INDEX 2.22 (< OR =4); TROPONIN I < 0.02 NG/ML (< 0.10)
--- NOTE | 2021-02-24 18:42 | REP ---
INDICATION: SOB COMPARISON: None. TECHNIQUE: Portable AP view of the chest FINDINGS: The mediastinum and cardiac silhouette are within normal limits for portable technique. The lung white are clear without acute consolidation, effusion, or pneumothorax. Skeletal structures are intact. IMPRESSION: No acute cardiopulmonary process appreciated. <Electronically signed by Yehuda Velázquez > 02/24/21 [id number]
[2021-02-24] MEDS ORDERED: PROAAER10 INH (18:56)
[2021-02-24] MEDS ORDERED: OMEP40CA4 PO (18:56)
[2021-02-24] MEDS ORDERED: CARA1TAB6 PO (18:56)
== END 2021-02-24 19:03 | disposition home or self-care (01) ==
LOC: M ED 12:55
DX: R06.02 Shortness of breath (principal)

== ENCOUNTER → 2022-05-08 | Outpatient (CLI) | payer OTHER ==
[~2022-05-08] MED LIST changes: +CARA1TAB6 PO; +OMEP40CA4 PO; +PROAAER10 INH
== END ==
LOC: M PLALAB 10:57
PROVIDERS: ATTEND Advanced Practice Midwife
DX: Z34.82 Encounter for supervision of other normal pregnancy, second trimester (principal)

== ENCOUNTER → 2022-05-26 | Outpatient (CLI) | payer OTHER | LOC: M WHC 07:32 | PROVIDERS: ATTEND Advanced Practice Midwife | DX: Z34.82 Encounter for supervision of other normal pregnancy, second trimester (principal); Z3A.25 25 weeks gestation of pregnancy ==

== ENCOUNTER → 2022-07-15 | Outpatient (CLI) | payer OTHER ==
[2022-07-15 15:56] LABS: HEMATOCRIT 33.7 % (36.0-47.0); HEMOGLOBIN 10.3 g/dl (12.0-15.5); MEAN CORPUSCULAR HEMOGLOBIN 24.8 pg (27.0-33.0); MEAN CORPUSCULAR HGB CONC 30.6 g/dl (32.0-36.5); PLATELET COUNT, AUTOMATED 220 10^3/uL (150-450); RED BLOOD COUNT 4.16 10^6/uL (4.00-5.40); WHITE BLOOD COUNT 5.8 10^3/uL (4.0-10.0)
[2022-07-15 19:22] LABS: GC DNA AMPLIFICATION NEGATIVE (NEGATIVE)
== END ==
LOC: M PLALAB 13:50
PROVIDERS: ATTEND Advanced Practice Midwife
DX: Z34.82 Encounter for supervision of other normal pregnancy, second trimester (principal)

== ENCOUNTER → 2022-08-13 | Outpatient (REF) | payer OTHER, MEDICAID | LOC: M SFHCWAGY 16:58 | PROVIDERS: ATTEND Specialist | DX: Z34.83 Encounter for supervision of other normal pregnancy, third trimester (principal) ==

== ENCOUNTER → 2022-08-29 | Outpatient (CLI) | payer MEDICAID, OTHER ==
[2022-08-29 14:27] LABS: HEMATOCRIT 34.6 % (36.0-47.0); HEMOGLOBIN 10.5 g/dl (12.0-15.5); MEAN CORPUSCULAR HEMOGLOBIN 24.1 pg (27.0-33.0); MEAN CORPUSCULAR HGB CONC 30.3 g/dl (32.0-36.5); MEAN CORPUSCULAR VOLUME 79.4 fl (80.0-96.0); PLATELET COUNT, AUTOMATED 183 10^3/uL (150-450); RED BLOOD COUNT 4.36 10^6/uL (4.00-5.40); WHITE BLOOD COUNT 5.5 10^3/uL (4.0-10.0)
[2022-08-29 15:33] LABS: HEMOGLOBIN A1c 5.4 % (4.0-6.0)
== END ==
LOC: M PLALAB 09:46
PROVIDERS: ATTEND Advanced Practice Midwife
DX: O99.013 Anemia complicating pregnancy, third trimester (principal); Z3A.00 Weeks of gestation of pregnancy not specified

== ENCOUNTER → 2022-09-01 | Outpatient (CLI) | payer OTHER | LOC: M WHC 08:51 | PROVIDERS: ATTEND Advanced Practice Midwife | DX: O99.810 Abnormal glucose complicating pregnancy (principal); Z3A.39 39 weeks gestation of pregnancy ==

== ENCOUNTER 2022-09-07 02:13 | Inpatient (IN) | payer OTHER, MEDICAID ==
[~2022-09-07] VITALS: Ht 154.9 cm; Wt 80.7 kg
[2022-09-07] VITALS (9 sets, daily range): BP systolic 112–181; BP diastolic 58–117
[2022-09-07] MEDS ORDERED: LACTATED RINGER'S 1000 ML IV STA (02:36)
[2022-09-07] MEDS ORDERED: LR 1,000 ML IV SCH (02:40)
[2022-09-07] MEDS ORDERED: PRENTAB9 PO (02:43)
[2022-09-07] MEDS ORDERED: HOME MED LIST COMPLETE! XX SCH (02:45)
[2022-09-07 03:00] LABS: HEMATOCRIT 38.2 % (36.0-47.0); HEMOGLOBIN 11.8 g/dl (12.0-15.5); MEAN CORPUSCULAR HEMOGLOBIN 23.7 pg (27.0-33.0); MEAN CORPUSCULAR HGB CONC 30.9 g/dl (32.0-36.5); MEAN CORPUSCULAR VOLUME 76.9 fl (80.0-96.0); PLATELET COUNT, AUTOMATED 206 10^3/uL (150-450); RED BLOOD COUNT 4.97 10^6/uL (4.00-5.40); WHITE BLOOD COUNT 6.7 10^3/uL (4.0-10.0)
[2022-09-07] MEDS ORDERED: OXYTOCIN DRIP 30 UNITS in IV 1 EA IV SCH (03:40)
[2022-09-07 04:55] LABS: CORD GAS ABE A -2.7; CORD GAS HCO3 A 24.6 MEQ/L; CORD GAS HCO3 V 20.6 MEQ/L; CORD GAS O2 SAT A 51.4 %; CORD GAS O2 SAT V 72.8 %; CORD GAS PCO2 A 51.9 mmHg; CORD GAS PCO2 V 33.4 mmHg; CORD GAS PH A 7.294 UNITS; CORD GAS PH V 7.409 UNITS; CORD GAS PO2 A 22.5 mmHg; CORD GAS PO2 V 29.4 mmHg; CORD GAS SBC V 21.4 MEQ/L; CORD GAS TCO2 A 26.2 MEQ/L; CORD GAS TCO2 V 21.7 MEQ/L
[2022-09-07] MEDS ORDERED: RHOGAM 300MCG (1500IU) INJ IM SCH (05:15)
[2022-09-07] MEDS ORDERED: ACETAMINOPHEN 500 MG TAB PO PRN (05:15)
[2022-09-07] MEDS ORDERED: METHYLERGONOVINE MALEATE 0.2 MG TAB PO PRN (05:15)
[2022-09-07] MEDS ORDERED: DIBUCAINE 1% OINTMENT 30GM TOP PRN (05:15)
[2022-09-07] MEDS ORDERED: DOCUSATE SODIUM 100MG CAPSULE PO PRN (05:15)
[2022-09-07] MEDS ORDERED: IBUPROFEN 800 MG TAB PO PRN (05:15)
[2022-09-07] MEDS ORDERED: ACETAMINOPHEN TAB 650MG DOSE (2X325MG) PO PRN (05:15)
[2022-09-07] MEDS ORDERED: IBUPROFEN 600MG TAB PO PRN (05:15)
[2022-09-07] MEDS: PRENATAL VITAMINS CHEWABLE TABLET PO SCH (09:29)
[2022-09-08 06:00] VITALS: BP 118/72
[2022-09-08] MEDS: PRENATAL VITAMINS CHEWABLE TABLET PO SCH (09:39)
[2022-09-08] MEDS ORDERED: ACET-683 PO (15:00)
[2022-09-08] MEDS ORDERED: IBUP80TA PO (15:01)
[2022-09-09] MEDS ORDERED: MEASLES,MUMPS,RUBELLA VACCINE INJ (MMR-II) SC.IMMUN ONE (09:00)
== END 2022-09-08 17:55 | disposition home or self-care (01) | DRG 560 ==
LOC: M LDO 02:13 → M LDI 02:35 → M OBS 06:17
PROVIDERS: ADMIT Obstetrics & Gynecology; ATTEND Obstetrics & Gynecology
PROC: 10E0XZZ Delivery of Products of Conception, External Approach (ICD-10-PCS; principal; 2022-09-07)
PROC: 10907ZC Drainage of Amniotic Fluid, Therapeutic from Products of Conception, Via Natural or Artificial Opening (ICD-10-PCS; 2022-09-07)
DX: O80 Encounter for full-term uncomplicated delivery (principal); Z37.0 Single live birth; Z3A.39 39 weeks gestation of pregnancy